=== PATIENT | male | born 2000 | race Caucasian/White ===

== ENCOUNTER 2018-01-17 22:50 | Emergency (ER) | payer OTHER ==
[2018-01-17 22:57] VITALS: BP 126/83; PULSE 90; TEMP 98.4; BMI 27.6
--- NOTE | 2018-01-17 23:55 | PDOC ---
History of Present Illness - General History Source: Patient Exam Limitations: No Limitations - History of Present Illness Initial Comments: 01/17/18 23:57 Patient is a 17 year old male with no significant past medical history who presents to the ED with complaints of right 5th digit pain, s/p laceration that occurred just prior to ED arrival. Patient reports hitting his right fist into a window causing immediate active bleeding from his right fifth digit on his hand. As per children[facility] home staff, direct pressure was administered to the laceration, followed by bringing the patient into the ED for further evaluation. Patient reports that he is left hand dominant. Patient is currently not actively bleeding while in the ED. Denies fevers, chills. Denies nausea, vomiting. Denies contact with sick individuals, out of state travelling. Denies any other symptoms. Allergies: None Social history: children[facility] home. No smoking. No alcohol. No illicit drugs. Surgical history: None PMD: None <Alexis Fraire - Last Filed: 01/17/18 23:58> <Jayla Lock - Last Filed: 01/18/18 04:23> - General Chief Complaint: Injury Stated Complaint: PUNCHED A WINDOW, LACERATION RIGHT PINKY Time Seen by Provider: 01/17/18 22:59 Past History <Alexis Fraire - Last Filed: 01/17/18 23:58> - Past Medical History COPD: No Other medical history: ADHD - Immunization History Immunization Up to Date: Yes - Suicide/Smoking/Psychosocial Hx Smoking History: Never smoked Have you smoked in the past 12 months: No Information on smoking cessation initiated: No Hx Alcohol Use: No Drug/Substance Use Hx: No Substance Use Type: None <Jayla Lock - Last Filed: 01/18/18 04:23> - Past Medical History Allergies/Adverse Reactions: Allergies Allergy/AdvReac Type Severity Reaction Status Date / Time No Known Allergies Allergy Verified 01/17/18 22:52 Home Medications: Ambulatory Orders Cephalexin Monohydrate [Keflex -] 500 mg PO Q8H #12 capsule 01/18/18 Review of Systems - Review of Systems Able to Perform ROS?: Yes Comments:: 01/17/18 23:57 GENERAL/CONSTITUTIONAL: No fever or chills. No weakness. HEAD, EYES, EARS, NOSE AND THROAT: No change in vision. No ear pain or discharge. No sore throat. CARDIOVASCULAR: No chest pain or shortness of breath. RESPIRATORY: No cough, wheezing, or hemoptysis. GASTROINTESTINAL: No nausea, vomiting, diarrhea or constipation. GENITOURINARY: No dysuria, frequency, or change in urination. MUSCULOSKELETAL: No joint or muscle swelling or pain. No neck or back pain. SKIN: +Right fifth digit laceration. NEUROLOGIC: No headache, vertigo, loss of consciousness, or change in strength/ sensation. ENDOCRINE: No increased thirst. No abnormal weight change. HEMATOLOGIC/LYMPHATIC: No anemia, easy bleeding, or history of blood clots. ALLERGIC/IMMUNOLOGIC: No hives or skin allergy. <Alexis Fraire - Last Filed: 01/17/18 23:58> *Physical Exam - Vital Signs Last Vital Signs Temp Pulse Resp BP Pulse Ox 98.4 F 90 16 126/83 99 01/17/18 22:53 01/17/18 22:53 01/17/18 22:53 01/17/18 22:53 01/17/18 22:53 - Physical Exam Comments: 01/17/18 23:57 GENERAL: Awake, alert, and fully oriented, in no acute distress HEAD: No signs of trauma EXTREMITIES: Normal range of motion, no edema. No clubbing or cyanosis. No cords, erythema, or tenderness NEUROLOGICAL: Cranial nerves II through XII grossly intact. Normal speech, normal gait SKIN: +2.5 cm full thickness vertical laceration of the dorsal aspect of the proximal phalanx of right fifth digit. +Motor sensory intact. +Excellent capillary refill. Warm, Dry, normal turgor, no rashes or lesions noted. <Alexis Fraire - Last Filed: 01/17/18 23:58> - Vital Signs Last Vital Signs Temp Pulse Resp BP Pulse Ox 98.4 F 90 16 126/83 99 01/17/18 22:53 01/17/18 22:53 01/17/18 22:53 01/17/18 22:53 01/17/18 22:53 <Jayla Lock - Last Filed: 01/18/18 04:23> Procedures - Laceration/Wound Repair Right Proximal Dorsal 5th digit Wound Length: to 2.5 cm Wound Explored: no foreign body present Wound's Depth, Shape: flap Irrigated w/ Saline: Yes Betadine Prep: No (Hibiclens/ethanol) Anesthesia: 1% Lidocaine Amount of Anesthetic (ccs): 2 Wound Debrided: minimal Wound Repaired With: Sutures Suture Size/Type: 4:0 Number of Sutures: 6 Layer Closure: No Deep Layer Suture Size/Type: 4:0 Number of Deep Layer Sutures: 0 Sterile Dressing Applied: Yes Splint Applied: No Progress: Area of the right fifth finger proximal dorsal laceration prepped using Hibiclens/ethanol solution. 2 mL of 1% lidocaine infiltrated for local anesthesia. Wound draped. Exploration of wound revealed no evidence of foreign body or tendon injury. Wound thoroughly irrigated using 50 mL of sterile normal saline. Wound closed using 6 interrupted sutures of 4-0 nylon. The remainder of small, superficial lacerations on the dorsum of the hand and other fingers cleansed using sterile normal saline. Bacitracin applied to primary wound and secondary smaller wounds and sterile gauze dressing placed. Patient tolerated procedure well. <Jayla Lock - [place] Filed: 01/18/18 04:23> Progress Note - Progress Note Progress Note: Documentation has been prepared under my direction and personally reviewed by me in its entirety. I attest that this documented accurately reflects all work, treatment, procedures and medical decision making performed by me. <Jayla Lock - [place] Filed: 01/18/18 04:23> Medical Decision Making - Medical Decision Making As noted above, this 17-year-old boy from [facility] presents with right fifth finger laceration. Patient had sustained this injury just prior to presentation when he struck window out of anger. No other injury sustained. Exam as noted with full thickness laceration of the proximal phalanx, dorsal surface of the right fifth finger. He has other small, superficial lacerations present on the dorsum of the hand and other fingers. No other deep lacerations noted. Exam reveals motor and sensory functioning intact. Patient is up to date on immunizations Because of the possibility of glass pain in the wound, x-ray of the right fifth finger performed: Preliminary interpretation by me-no evidence of foreign body or fracture/dislocation. Wound repaired as noted above. Because the wound is full-thickness, located on the finger and may have been contaminated with foreign body (although none seen on x-ray or on exploration of the wound), Keflex 500 mg by mouth will be given here in the ER and prescription for Keflex 500 mg every 8 hours for 4 days will be sent to pharmacy. Meanwhile the patient should keep wound is dry as possible and covered for 48 hours; subsequently, protective dressing can be used during the day and wound should be kept open at night. Patient should not immerse the wound until sutures removed. Wound to be briefly wet prior to suture removal. Sutures should be removed on January 26. Patient should be returned to the ER if there is evidence of wound infection. <Jayla Lock - Last Filed: 01/18/18 04:23> *DC/Admit/Observation/Transfer - Attestations Scribe Attestion: 01/17/18 23:57 Documentation prepared by Alexis Fraire, acting as medical record transcriber for Jayla Lock MD. <Alexis Fraire - Last Filed: 01/17/18 23:58> <Jayla Lock - Last Filed: 01/18/18 04:23> Diagnosis at time of Disposition: Laceration of finger of right hand Qualifiers: Encounter type: initial encounter Finger: little finger Damage to nail status: without damage Foreign body presence: without foreign body Qualified Code(s): S61.216A - Laceration without foreign body of right little finger without damage to nail, initial encounter - Discharge Dispostion Disposition: HOME Condition at time of disposition: Stable - Prescriptions Prescriptions: Cephalexin Monohydrate [Keflex -] 500 mg PO Q8H #12 capsule - Patient Instructions Printed Discharge Instructions: How to Care for a Laceration After Repair Additional Instructions: Elevate right hand at heart level or above as much as possible for the next 24 hours Keep original dressing in place, as dry as possible, for 2 days After 2 days, you can covered during the day as needed but open at night Keflex 500 mg 3 times a day for 4 days No immersion until sutures removed; can wet wound briefly prior to suture removal Return if wound is very painful/swollen/red or if there is any red streaking up hand/arm Have sutures removed on January 26
[2018-01-18] MEDS ORDERED: CEPHALEXIN MONOHYDRATE 500 MG CAPSULE (UD) PO ONE (00:50)
[2018-01-18] MEDS ORDERED: CEPHALEXIN MONOHYDRATE 500 MG CAPSULE (UD) ONE (00:51)
== END 2018-01-18 01:01 | disposition home or self-care (01) ==
LOC: FER 22:50
PROC: 0HQFXZZ Repair Right Hand Skin, External Approach (ICD-10-PCS; principal; 2018-01-17)
DX: S61.216A Laceration without foreign body of right little finger without damage to nail, initial encounter (principal); W25.XXXA Contact with sharp glass, initial encounter; Y93.89 Activity, other specified; Y92.159 Unspecified place in reform school as the place of occurrence of the external cause
CPT/HCPCS: 73140-TC-RT-FY; 99281-25